=== PATIENT | female | born 1985 | race Caucasian/White ===

== ENCOUNTER 2016-12-09 19:35 | Inpatient (IN) | payer MEDICAID ==
[2016-12-09] VITALS (26 sets, daily range): BP systolic 123–166; BP diastolic 56–114; PULSE 62–125; RESP 18; TEMP 98; O2SAT 98–100
[~2016-12-09] VITALS: Ht 172.7 cm; Wt 86.2 kg
[~2016-12-09 19:35] MED LIST: AZOTAB2 PO; CLEO300C2 PO; DIPHTH/TETANUS/ACEL PERTUSSIS (BOOSTER) 0.5 ML VIAL/PFS IM ONE; HYDR-3580 PO; IBUP800T23 PO; MEASLES, MUMPS, RUBELLA VACCINE 0.5 ML VIAL SQ ONE; PENI500T PO; ZOFR4TAB3 SL
[2016-12-09] MEDS ORDERED: LACTATED RINGER'S 1000 ML INJ 1,000 ML IV PRN (20:12)
[2016-12-09] MEDS ORDERED: LACTATED RINGER'S 1000 ML INJ 1,000 ML IV SCH (20:12)
[2016-12-09] MEDS ORDERED: CITRIC ACID-SODIUM CITRATE LIQ 30 ML UDC PO SCH (20:15)
[2016-12-09] MEDS ORDERED: LIDOCAINE HCL 1% 50 ML VIAL I-DERMAL PRN (20:15)
[2016-12-09] MEDS ORDERED: OXYTOCIN 30 UNITS-500ML PREMIX 500 ML IV ONE (20:15)
[2016-12-09] MEDS ORDERED: SODIUM CHLORID 0.9% 500 ML INJ 500 ML IV PRN (20:15)
[2016-12-09] MEDS ORDERED: LIDOCAINE HCL 1% 50 ML VIAL INFIL PRN (20:15)
[2016-12-09] MEDS ORDERED: ONDANSETRON HCL 4 MG/2 ML VIAL IV PRN (20:15)
[2016-12-09] MEDS ORDERED: MINERAL OIL 10 ML VIAL TOPICAL PRN (20:15)
[2016-12-09] MEDS ORDERED: CALCIUM GLUCONATE 10% 1 GM/10 ML VIAL IV PUSH PRN (20:30)
[2016-12-09] MEDS ORDERED: MAGNESIUM SULFATE 4 GM PREMIX 100 ML IV ONE (20:30)
--- NOTE | 2016-12-09 20:30 | HHI.HP ---
History & Physical H&P HPI Chief Complaint Contractions Date Seen: Dec 09, 2016 Travel History International Travel<30 Days: No Contact w/Intl Traveler<30Days: No History of Present Illness HPI Patient is a 31 year old at 38-6/7 weeks gestation based on LMP who presents today for contractions. She started having cramping last night and noticed increasing frequency of contractions. Contractions are now occurring q4min and lasting 1 min. She states that she lost her mucous plug. She denies any vaginal bleeding or discharge other than her mucous plug. No gush or leaking of fluid. No care. History (Limited) History Past Medical History Medical History: Denies Significant Hx Obstetric History Obstetric History s/p at 32 weeks gestation, complicated by pre-eclampsia and Gestation DM No Care Past Surgical History Surgical History: No Previous Surgery Family History Family History: Negative Social History Alcohol Use: No Tobacco Use: Yes (1/4 ppd x 5 months, 1-2 ppd in first few months of ) Substance Abuse: No Allergies-Medications Allergies-Medications (Allergen,Severity, Reaction): Coded Allergies: No Known Allergies (Unverified , 02/23/15) Home Meds Active Scripts Clindamycin Hcl (Cleocin)300 Mg [id number] Mg PO Q6 #28 CAP Prov:Zurdo Luz MD 02/23/15 Ibuprofen 800 Mg [id number] Mg PO Q8 PRN (pain and inflammation) #15 TAB Prov:Zurdo Luz MD 02/23/15 Ondansetron (Zofran ODT)4 Mg Tab4 Mg SL Q6 #4 TAB FOR NAUSEA/VOMITING Prov:Tashi Fletcher MD 02/01/15 Reported Medications Penicillin V Potassium (Pen Vk)500 Mg Atx118 Mg PO QID #40 TAB 02/23/15 Hydrocodone/Acetaminophen 7.5 mg/325 mg 1 Tab1 Tab PO Q4H PRN (PAIN) 02/23/15 Azo Standard Maximum 1 Tab PO TID 02/23/15 ROS Review of Systems Except as stated in HPI: all other systems reviewed are Neg General / Constitutional: No: Fever, Chills Eyes: No: Blurred Vision, Visual changes HENT: No: Headaches Cardiovascular: No: Chest Pain or Discomfort, Palpitations Respiratory: No: Cough, Short of Breath Gastrointestinal: No: Nausea, Vomiting Genitourinary: Pelvic Pain, Discharge, No: Dysuria, Hematuria, Vaginal Bleeding Musculoskeletal: No: Edema Skin: No Rash Psychiatric: No: Substance Abuse Physical Exam Physical Exam Narrative GENERAL: Well-nourished, well-developed patient. SKIN: Warm and dry. HEAD: Normocephalic and atraumatic. EYES: No scleral icterus. No injection or drainage. ENT: No nasal drainage noted. Mucous membranes pink. Airway patent. NECK: Supple, trachea midline. No JVD. CARDIOVASCULAR: Regular rate and rhythm without murmurs, gallops, or rubs. RESPIRATORY: Breath sounds equal bilaterally. No accessory muscle use. ABDOMEN/GI: Abdomen soft, non-tender, bowel sounds present, no rebound, no guarding Gravid to 38 weeks size GENITOURINARY: External Genitalia: intact and normal in appearance BUS glands: wnl Cervix: midposition Dilatation: 4 Effacement: 70 Station: -1 Presentation: vertex Membranes: intact Uterine Contractions: q4min FHT's: Category: II Baseline: 160 Reactive: + Variability: moderate Decels: none EXTREMITIES: No cyanosis or edema. BACK: Nontender without obvious deformity. NEUROLOGICAL: Awake and alert. Motor and sensory grossly within normal limits. Normal speech. Data Data Data Vital Signs Reviewed: Yes Orders Vital Signs (Adult) .ON ADMISSION (12/09/16 20:12) ^ Labor Status (12/09/16 20:12) ^ Non Stress Test (12/09/16 20:12) ^ Hydration (12/09/16 20:12) Ob (2e) Additional Admit Info (12/09/16 20:14) Admit To Inpatient (12/09/16 ) Code Status (12/09/16 20:12) Vital Signs (Adult) .Per protocol (12/09/16 20:12) Activity Oob Ad Alannah (12/09/16 20:12) ^ Heart (12/09/16 20:12) ^ Amnioinfusion (12/09/16 20:12) Urinary Catheter Management .ONCE (12/09/16 20:12) Diet Liquid (12/10/16 Breakfast) Lactated Ringer's 1000 Ml Inj (Lr 1000 M (12/09/16 20:12) Lactated Ringer's 1000 Ml Inj (Lr 1000 M (12/09/16 20:12) Sodium Chlorid 0.9% 500 Ml Inj (Ns 500 M (12/09/16 20:15) Sodium Chlor 0.9% 1000 Ml Inj (Ns 1000 M (12/09/16 20:32) Lidocaine 1% Inj (50 Ml) (Xylocaine 1% I (12/09/16 20:15) Citric Acid-Sodium Citrate Liq (Bicitra (12/09/16 20:15) Ondansetron Inj (Zofran Inj) (12/09/16 20:15) Fentanyl Inj (Fentanyl Inj) (12/09/16 20:15) Fentanyl Inj (Fentanyl Inj) (12/09/16 20:15) Complete Blood Count With Diff (12/09/16 20:12) Hold Clot (12/09/16 20:12) Abo/Rh Blood Type (12/09/16 20:12) Urinalysis - C+S If Indicated (12/09/16 20:12) Resp Oxygen Non Rebreathe Mask (12/09/16 ) ^ Epidural / Intrathecal Infus (12/09/16 20:12) Oxytocin 30 Units-500ml Premix (Pitocin (12/09/16 20:15) Lidocaine 1% Inj (50 Ml) (Xylocaine 1% I (12/09/16 20:15) Light Mineral Oil (Muri-Lube Oil) (12/09/16 20:15) Inpatient Certification (12/09/16 ) Rubella Immune Status (12/09/16 20:12) Hepatitis Profile (12/09/16 20:12) Rapid Plasma Regin (Rpr) W Ttr (12/09/16 20:12) Type And Screen (12/09/16 20:12) No Care Spec Serology (12/09/16 20:12) ^ Notify Parameters (12/09/16 20:17) ^ Check Deep Tendon Reflexes Q1H (12/09/16 20:17) Magnesium Sulfate 40 Gm Premix (Magnesiu (12/09/16 21:00) Calcium Gluconate Inj (Calcium Gluconate (12/09/16 20:30) Comprehensive Metabolic Panel (12/09/16 20:17) Uric Acid (12/09/16 20:17) Magnesium Sulfate 4 Gm Premix (Magnesium (12/09/16 20:30) Dye Weigher / Telemetry VIDAL.Q8H (12/09/16 20:17) Micro Albumin Creat Random Ur (12/09/16 20:17) Group B Strep Pcr (12/09/16 20:21) [facility] Medical Record Reviewed: Yes Narrative Course / MDM 31 year old at 38-6/7 weeks gestation. 1. IUP- Category II tracing for tachycardia, continue to monitor toco/fht , IV fluid hydration. 2. Labor- Regular painful contractions, cervical change to 5cm after 30 minutes. Will admit for labor. AROM with no fluid return. 3. HTN- BP 150/100, 156/97, 152/96, 150/76. No history of HTN. Pre-eclampsia in previous . No care. Magnesium sulfate for seizure ppx. Continue to monitor BP's closely. Obtain CBC, CMP, uric acid, UA, urine microalbumin/creatinine ratio. 4. No care- Bedside US shows single gestation, vertex presentation. Obtain labs. 5. GBS unknown- rapid GBS pending 6. Anticipate sdw Dr. Grewal and Dr. Onofre R1 Emily Azevedo MD R2 Dec 09, 2016 20:30
[2016-12-09] MEDS ORDERED: SODIUM CHLOR 0.9% 1000 ML INJ 1,000 ML IV PRN (20:32)
--- NOTE | 2016-12-09 20:45 | PD ---
HPI Chief Complaint Labor pain Date Seen: Dec 09, 2016 Travel History International Travel<30 Days: No Contact w/Intl Traveler<30Days: No History of Present Illness HPI This patient is a 31-year-old white female at 38 weeks and 6 days by LMP with no care to date. She presents complaining of regular contraction pain. Denies bleeding or rupture the membranes baby's been active, and the heart rate tracing is showing a mild tachycardia with good variability and accelerations noted her blood pressures are elevated in the range of 150-160/90-100 and she had preeclampsia with her first baby says otherwise she has no high blood pressure issues and she is monitoring her blood pressure at home and it was normal Para: 1 : 2 History Obstetric History Obstetric History Preeclampsia with first baby vaginal Family History Family History: Negative Social History Alcohol Use: No Tobacco Use: No Substance Abuse: No Allergies-Medications (Allergen,Severity, Reaction): Coded Allergies: No Known Allergies (Unverified , 02/23/15) Home Meds Active Scripts Clindamycin Hcl (Cleocin)300 Mg [id number] Mg PO Q6 #28 CAP Prov:Zurdo Luz MD 02/23/15 Ibuprofen 800 Mg [id number] Mg PO Q8 PRN (pain and inflammation) #15 TAB Prov:Zurdo Luz MD 02/23/15 Ondansetron (Zofran ODT)4 Mg Tab4 Mg SL Q6 #4 TAB FOR NAUSEA/VOMITING Prov:Tashi Fletcher MD 02/01/15 Reported Medications Penicillin V Potassium (Pen Vk)500 Mg [id number] Mg PO QID #40 TAB 02/23/15 Hydrocodone/Acetaminophen 7.5 mg/325 mg 1 Tab1 Tab PO Q4H PRN (PAIN) 02/23/15 Azo Standard Maximum 1 Tab PO TID 02/23/15 Review of Systems General / Constitutional: No: Fever, Weight Gain, Chills, Other Eyes: No: Diploplia, Blurred Vision, Visual changes, Pain, Photophobia HENT: No: Headaches, Vertigo, Lightheadedness Cardiovascular: No: Irregular Rhythm, Chest Pain or Discomfort, Palpitations, Tachycardia, Syncope, Varicosities, Edema, Cyanosis Respiratory: No: Cough, Short of Breath, Other Gastrointestinal: Abdominal Pain, No: Nausea, Vomiting, Diarrhea Genitourinary: No: Decreased Urinary Output, Oliguria Musculoskeletal: No: Limited ROM, Weakness, Cramping, Edema, Pain Skin: No Rash, No Itching, No Dryness, No Lumps, No Change in Pigmentation, No Change in Nails, No Alopecia, No Lesions Neurologic: No: Weakness, Dizziness, Syncope, Focal Abnormalities, Coordination Problem, Headache, Slurred Speech, Seizures Psychiatric: No: Depression, Suicidal Ideations, Homicidal Ideation Endocrine: No: Heat Intolerance, Cold Intolerance, Polydipsia, Polyuria, Other Physical Exam Narrative GENERAL: Well-nourished, well-developed patient. SKIN: Warm and dry. HEAD: Normocephalic and atraumatic. EYES: No scleral icterus. No injection or drainage. ENT: No nasal drainage noted. Mucous membranes pink. Airway patent. NECK: Supple, trachea midline. No JVD. CARDIOVASCULAR: Regular rate and rhythm without murmurs, gallops, or rubs. RESPIRATORY: Breath sounds equal bilaterally. No accessory muscle use. BREASTS: Bilateral exam showed no masses , no retractions, no nipple discharge. ABDOMEN/GI: Abdomen soft, non-tender, bowel sounds present, no rebound, no guarding Gravid to [-38] weeks size Fundal Height: [-38 cm] GENITOURINARY: External Genitalia: intact and normal in appearance, GBS culture done BUS glands: [-] Dilatation: [-4] Effacement: [70-] Station: [-3] Presentation: [vtx-] Membranes: [intact ] Uterine Contractions: [-] FHT's: Category: [2-] Baseline: [144-] Reactive: [yes-] Variability: [-mod] Decels: [-none] EXTREMITIES: No cyanosis or edema. BACK: Nontender without obvious deformity. No CVA tenderness. NEUROLOGICAL: Awake and alert. Motor and sensory grossly within normal limits. Five out of 5 muscle strength in all muscle groups. Normal speech. Data Data Orders Vital Signs (Adult) .ON ADMISSION (12/09/16 20:12) ^ Labor Status (12/09/16 20:12) ^ Non Stress Test (12/09/16 20:12) ^ Hydration (12/09/16 20:12) Ob (2e) Additional Admit Info (12/09/16 20:14) Admit To Inpatient (12/09/16 ) Code Status (12/09/16 20:12) Vital Signs (Adult) .Per protocol (12/09/16 20:12) Activity Oob Ad Alannah (12/09/16 20:12) ^ Heart (12/09/16 20:12) ^ Amnioinfusion (12/09/16 20:12) Urinary Catheter Management .ONCE (12/09/16 20:12) Diet Liquid (12/10/16 Breakfast) Lactated Ringer's 1000 Ml Inj (Lr 1000 M (12/09/16 20:12) Lactated Ringer's 1000 Ml Inj (Lr 1000 M (12/09/16 20:12) Sodium Chlorid 0.9% 500 Ml Inj (Ns 500 M (12/09/16 20:15) Sodium Chlor 0.9% 1000 Ml Inj (Ns 1000 M (12/09/16 20:32) Lidocaine 1% Inj (50 Ml) (Xylocaine 1% I (12/09/16 20:15) Citric Acid-Sodium Citrate Liq (Bicitra (12/09/16 20:15) Ondansetron Inj (Zofran Inj) (12/09/16 20:15) Fentanyl Inj (Fentanyl Inj) (12/09/16 20:15) Fentanyl Inj (Fentanyl Inj) (12/09/16 20:15) Complete Blood Count With Diff (12/09/16 20:12) Hold Clot (12/09/16 20:12) Abo/Rh Blood Type (12/09/16 20:12) Urinalysis - C+S If Indicated (12/09/16 20:12) Resp Oxygen Non Rebreathe Mask (12/09/16 ) ^ Epidural / Intrathecal Infus (12/09/16 20:12) Oxytocin 30 Units-500ml Premix (Pitocin (12/09/16 20:15) Lidocaine 1% Inj (50 Ml) (Xylocaine 1% I (12/09/16 20:15) Light Mineral Oil (Muri-Lube Oil) (12/09/16 20:15) Inpatient Certification (12/09/16 ) Rubella Immune Status (12/09/16 20:12) Hepatitis Profile (12/09/16 20:12) Rapid Plasma Regin (Rpr) W Ttr (12/09/16 20:12) Type And Screen (12/09/16 20:12) No Care Spec Serology (12/09/16 20:12) ^ Notify Parameters (12/09/16:17) ^ Check Deep Tendon Reflexes Q1H (12/09/16 20:17) Magnesium Sulfate 40 Gm Premix (Magnesiu (12/09/16 21:00) Calcium Gluconate Inj (Calcium Gluconate (12/09/16 20:30) Comprehensive Metabolic Panel (12/09/16 20:) Uric Acid (12/09/16 20:17) Magnesium Sulfate 4 Gm Premix (Magnesium (12/09/16 20:30) Wholesale Agronomist / Telemetry VIDAL.Q8H (12/09/16 20:) Micro Albumin Creat Random Ur (12/09/16 20:17) Group B Strep Pcr (12/09/16 20:21) MDM Interpretation(s) This patient is a 31-year-old white female at 38-39 weeks with by her LMP with no care today. She presents clinically contractions. No bleeding or ruptured membranes noted the baby's active heart rate tracing shows mild tachycardia with good variability. Her blood pressures elevated 150-160/90-100, she had a history of preeclampsia with her first baby. Her cervix is 4 cm dilated she is helder actively with pain Plan Plan this patient is being admitted the hospital check her preeclamptic labs and urinalysis urine drug screen to diminish magnesium sulfate for seizure prophylaxis, and to augment her labor by rupture membranes and augmented when necessary. Anticipate vaginal delivery. Diagnosis Diagnosis: Primary Impression: Hypertension affecting in third trimester Ayaan Grewal II, MD Dec 09, 2016 20:45
[2016-12-09 20:53] LABS: BLOOD, URINE NEG (NEG); COMMENT (UR) CULT NOT INDICATED; CULTURE IF INDICATED CULT NOT INDICATED; GLUCOSE,URINE NEG (NEG); KETONE, URINE NEG (NEG); MUCUS URINE FEW /lpf (OCC); NITRITE,URINE NEG (NEG); PH, URINE 6.5 (5.0-8.5); SQUAMOUS EPITHELIAL CELL URINE 1 /hpf (0-5); URINE COLOR LIGHT-YELLOW (YELLW/STRAW)
[2016-12-09 21:00] LABS: AMPHETAMINE, URINE NEG (NEG); BARBITURATES, URINE NEG (NEG); COCAINE, URINE NEG (NEG)
[2016-12-09] MEDS ORDERED: MAGNESIUM SULFATE 40 GM PREMIX 1,000 ML IV SCH (21:00)
[2016-12-09 22:16] LABS: BASOPHIL # 0.2 TH/MM3 (0-0.2); BASOPHIL % 0.9 % (0.0-2.0); EOSINOPHIL # 0.4 TH/MM3 (0-0.4); EOSINOPHIL % 1.9 % (0.0-4.0); HEMATOCRIT 33.8 % (35.0-46.0); HEMO FLAGS DIFF FINAL; LYMPH % 11.2 % (9.0-44.0); LYMPHOCYTE # 2.3 TH/MM3 (1.0-4.8); MEAN CELL VOLUME 82.4 FL (80.0-100.0); MEAN CORPUSCULAR HEMOGLOBIN 27.6 PG (27.0-34.0); MEAN CORPUSCULAR HGB CONC 33.5 % (32.0-36.0); MONO % 9.1 % (0.0-8.0); NEUT % 76.9 % (16.0-70.0); PLATELET COUNT 380 TH/MM3 (150-450); RED BLOOD COUNT 4.09 MIL/MM3 (4.00-5.30); RED CELL DISTRIBUTION WIDTH 12.8 % (11.6-17.2); WHITE BLOOD COUNT 20.9 TH/MM3 (4.0-11.0)
[2016-12-09 22:26] LABS: MICRO ALBUMIN RANDOM URINE RAW 40.4 MG/L (0.0-30.0)
[2016-12-09 22:58] LABS: ALKALINE PHOSPHATASE 149 U/L (45-117); ALT (GPT) 13 U/L (10-53); ANION GAP 7 MEQ/L (5-15); AST (GOT) 18 U/L (15-37); BICARBONATE 26.4 MEQ/L (21.0-32.0); BLOOD UREA NITROGEN 10 MG/DL (7-18); CHLORIDE 106 MEQ/L (98-107); GLOMERULAR FILTRATION RATE 125 ML/MIN (>89); SODIUM (NA) 139 MEQ/L (136-145); TOTAL BILIRUBIN ADULT 0.2 MG/DL (0.2-1.0); URIC ACID 3.2 MG/DL (2.6-6.0)
[2016-12-09 22:59] LABS: RUBELLA IGG ANTIBODY 83.7 IU/mL (10.0-500.0); RUBELLA STATUS IMMUNE (IMMUNE)
[2016-12-09] MEDS ORDERED: fentaNYL 2MCG-BUPIV 0.125% INJ 100 ML ONE (22:59)
--- NOTE | 2016-12-09 23:18 | PD.LABORPN ---
Subjective Subjective Patient feeling painful contractions q2-4min. Objective Vital Signs Vital Signs Date Time Temp Pulse Resp B/P Pulse Ox O2 Delivery O2 Flow Rate FiO2 12/09/16 22:57 81 160/97 12/09/16 22:45 68 150/86 12/09/16 22:30 73 146/99 12/09/16 22:15 65 143/85 12/09/16 22:00 71 140/92 12/09/16 21:46 72 133/85 12/09/16 21:15 67 145/85 12/09/16 21:01 67 156/72 12/09/16 20:55 79 133/90 12/09/16 20:54 83 162/94 12/09/16 20:46 62 150/76 12/09/16 20:15 79 12/09/16 20:15 152/96 12/09/16 20:09 77 156/97 Objective Pelvic Exam: Cervix: midposition Dilatation: 7 Effacement: 100 Station: -1 Presentation: vertex Membranes: ruptured Uterine Contractions: q2-4min FHT's: Category: I Baseline: 140 Reactive: + Variability: moderate Decels: none Assessment/Plan Assessment and Plan 31 year old at 38-6/7 weeks gestation. 1. IUP- Category I tracing, reassuring. Continue routine obstetric care. 2. Labor- Regular painful contractions, cervical change noted. AROM with no fluid return. Epidural. 3. Hypertension in - Consistently elevated 140-160's/80-90's. No history of HTN. Pre-eclampsia in previous . No care. Magnesium sulfate for seizure ppx. Continue to monitor BP's closely. Platelets, liver enzymes, uric acid, UA wnl. Urine microalbumin/creatinine ratio elevated at 79. Patient remains asymptomatic. 4. No care- Bedside US shows single gestation, vertex presentation. labs, UDS pending. 5. GBS unknown- rapid GBS pending 6. Anticipate sdw Dr. Grewal and Dr. Onofre R1 Emily Azevedo MD R2 Dec 09, 2016 23:18
[2016-12-09] MEDS ORDERED: fentaNYL 2MCG-BUPIV 0.125% 100 ML EPIDURAL SCH (23:45)
[2016-12-09] MEDS ORDERED: DO NOT ADMINISTER ANTICOAGULANTS XX PRN (23:45)
[2016-12-09] MEDS ORDERED: ePHEDrine/NS 50 MG/5 ML SYR IV PRN (23:45)
[2016-12-09] MEDS ORDERED: NO SYSTEM NARCOTICS XX PRN (23:45)
[2016-12-10] VITALS (28 sets, daily range): BP systolic 125–160; BP diastolic 69–116; PULSE 64–93; RESP 18–24; TEMP 97.8–98.7
[2016-12-10] MEDS ORDERED: oxyCODONE/ACETAMINOPHEN 5 MG/325 MG TAB PO PRN
[2016-12-10] MEDS ORDERED: ALUMINUM/MAGNESIUM/SIMETH 30 ML CUP PO PRN
[2016-12-10] MEDS ORDERED: SODIUM CHLORIDE 0.9% FLUSH 5 ML FLUSH IV PRN
[2016-12-10] MEDS ORDERED: ONDANSETRON ODT 4 MG TAB PO PRN
[2016-12-10] MEDS ORDERED: WITCH HAZEL 50%/GLYCERIN 12.5% 40 PAD JAR TOPICAL PRN
[2016-12-10] MEDS ORDERED: BENZOCAINE 20% TOPICAL SPRAY 60 ML CAN TOPICAL PRN
[2016-12-10] MEDS ORDERED: ACETAMINOPHEN 325 MG TAB PO PRN
[2016-12-10] MEDS ORDERED: DOCUSATE SODIUM 50 MG/SENNA 8.6 MG TAB PO PRN
--- NOTE | 2016-12-10 00:01 | PD.OB.DELI ---
Delivery Date: Dec 09, 2016 Anesthesia: Epidural Episiotomy: None Vaginal Delivery: Normal Presentation: Occiput anterior Nuchal Cord: x1 Delayed cord clamping (45 sec): Yes : Female One Minute : 8 Five Minute : 9 Weight: 2880g Infant Care: Suctioned, Spontaneous crying, Responded to stimulation, Blow-by O2 delivered Placenta: Spontaneous delivery, Intact, 3 vessel cord Laceration: 1 deg Additional Information EBL 250cc Delivery performed by Dr. Azevedo and Dr. Onofre, supervised by Dr. Uri Azevedo,Emily Holbrook Dec 10, 2016 00:01
--- NOTE | 2016-12-10 00:10 | PD.LABORPN ---
Subjective Subjective OB attending note The patient delivered vaginally over an intact perineum without difficulty ., weight 2880 g 8/ 9 GBS was unknown. Her bilateral labial lacerations were repaired with a running chromic suture, delivery done by family medicine residents who did a good job sent out intact spontaneously. There were no complications to delivery. Delivery was supervised by myself Objective Vital Signs Vital Signs Date Time Temp Pulse Resp B/P Pulse Ox O2 Delivery O2 Flow Rate FiO2 12/09/16 23:30 69 123/86 12/09/16 23:25 70 127/58 12/09/16 23:25 73 12/09/16 23:23 66 130/56 12/09/16 23:21 88 140/114 12/09/16 23:20 79 12/09/16 23:15 152/89 12/09/16 23:15 71 12/09/16 23:10 74 12/09/16 23:10 153/89 12/09/16 23:05 79 12/09/16 23:05 166/94 12/09/16 23:02 74 138/92 12/09/16 22:57 81 160/97 12/09/16 22:45 68 150/86 12/09/16 22:30 73 146/99 12/09/16 22:15 65 143/85 12/09/16 22:00 71 140/92 12/09/16 21:46 72 133/85 12/09/16 21:15 67 145/85 12/09/16 21:01 67 156/72 12/09/16 20:55 79 133/90 12/09/16 20:54 83 162/94 12/09/16 20:46 62 150/76 12/09/16 20:15 79 12/09/16 20:15 152/96 12/09/16 20:09 77 156/97 Objective Ayaan Grewal II, MD Dec 10, 2016 00:10
[2016-12-10] MEDS: oxyCODONE/ACETAMINOPHEN 5 MG/325 MG TAB PO PRN ×6 (01:29→22:39)
[2016-12-10] MEDS: IBUPROFEN 600 MG TAB PO PRN ×3 (01:30→18:18)
[2016-12-10] MEDS ORDERED: NICOTINE 7 MG/24 HR PATCH TD SCH (09:00)
[2016-12-10] MEDS ORDERED: REMOVE OLD PATCH-NICOTINE TD SCH (09:00)
[2016-12-10] MEDS ORDERED: POLYETHYLENE GLYCOL 17 GM PKG PO SCH (09:45)
[2016-12-10] MEDS ORDERED: PETROLEUM/SHARK LIVER OIL 60 GM TUBE RECTAL PRN (09:45)
[2016-12-10] MEDS ORDERED: CALCIUM CARBONATE 500 MG CHEWABLE TAB CHEW PRN (09:45)
[2016-12-10] MEDS: NICOTINE 14 MG/24 HR PATCH TD SCH (09:53)
[2016-12-10] MEDS ORDERED: LORazepam 2 MG/ML VIAL IV PUSH PRN (10:00)
[2016-12-10] MEDS ORDERED: ZOLPIDEM TARTRATE 5 MG TAB PO PRN ×2 (10:00)
[2016-12-10 10:37] LABS: RAPID PLASMA REAGIN SCREEN NON-REACTIVE (NON-REACTVE)
--- NOTE | 2016-12-10 17:22 | HHI.OB ---
Subjective Post Day: 1 Remarks PPD1. Pain poorly controlled. Pt appears agitated, anxious. Hypertensive with SBP to 150. Mg still running- has tolerated clear fluids, but no solids yet. Voiding via rojas without difficulty. Denies flatus. Denies BM. Not yet OOB secondary to Rojas and IV medications. Denies fevers/chills, SOB/chest pain, calf pain Objective Vitals/I&O Vital Signs Date Time Temp Pulse Resp B/P Pulse Ox O2 Delivery O2 Flow Rate FiO2 12/10/16 14:45 98.3 83 18 156/91 12/10/16 14:00 20 12/10/16 13:00 87 140/98 12/10/16 12:30 97.8 20 12/10/16 12:00 69 125/73 12/10/16 12:00 24 12/10/16 11:00 80 143/82 12/10/16 11:00 18 12/10/16 10:00 66 139/89 12/10/16 10:00 20 12/10/16 09:00 67 160/89 12/10/16 08:34 98.7 20 12/10/16 07:00 64 151/86 12/10/16 06:00 80 151/85 12/10/16 05:45 18 12/10/16 05:00 71 130/75 12/10/16 04:00 70 136/78 12/10/16 03:40 97.8 18 12/10/16 03:36 67 142/87 12/10/16 02:56 67 12/10/16 02:56 142/69 12/10/16 02:25 18 12/10/16 02:00 93 157/93 12/10/16 01:45 90 150/88 12/10/16 01:30 87 149/94 12/10/16 01:15 83 134/86 12/10/16 01:00 69 141/74 12/10/16 00:55 18 12/10/16 00:45 71 144/83 12/10/16 00:41 76 131/89 12/10/16 00:25 18 12/10/16 00:00 88 136/116 12/09/16 23:55 98.0 18 12/09/16 23:51 72 131/72 12/09/16 23:46 125 133/74 2/14/17 23:36 70 151/64 12/09/16 23:30 69 123/86 12/09/16 23:25 98 12/09/16 23:25 70 127/58 12/09/16 23:25 73 12/09/16 23:23 66 130/56 12/09/16 23:21 88 140/114 12/09/16 23:20 79 12/09/16 23:20 100 12/09/16 23:15 152/89 12/09/16 23:15 18 100 12/09/16 23:15 98.0 12/09/16 23:15 71 12/09/16 23:10 100 12/09/16 23:10 74 12/09/16 23:10 153/89 12/09/16 23:05 100 12/09/16 23:05 79 12/09/16 23:05 166/94 12/09/16 23:02 74 138/92 12/09/16 22:57 81 160/97 12/09/16 22:45 68 150/86 12/09/16 22:30 73 146/99 12/09/16 22:15 65 143/85 12/09/16 22:00 71 140/92 12/09/16 21:46 72 133/85 12/09/16 21:15 67 145/85 12/09/16 21:01 67 156/72 12/09/16 20:55 79 133/90 12/09/16 20:54 83 162/94 12/09/16 20:46 62 150/76 12/09/16 20:15 79 12/09/16 20:15 152/96 12/09/16 20:09 77 156/97 Objective Remarks GENERAL: Well-nourished, well-developed patient in moderate distress secondary to anxiety and abdominal pain HEENT: PERRL. MMM. CV: RRR. No murmurs. RESP: Breathing well on room air. GI: Abd mildly diffusely tender. Fundus firm just inferior to umbilicus. When distracted, pain is greatly reduced to palpation : Light to moderate bleeding. MSK: No cyanosis or edema, non-tender, without signs of DVT. NEURO: Patellar reflex equally hyperreflexive 2+ bilaterally. PSYCH: Appears in emotional distress. Poor eye contact. Poor insight. Medications and IVs Current Medications Medications (Trade) Dose Ordered Sig/Morris Route Start Time Stop Time Status Last Admin Miscellaneous Information No systemic narcotics to be given except... UNSCH PRN XX 12/09/16 23:45 12/10/16 23:44 Miscellaneous Information DO NOT ADMINISTER ANY ANTICOAGUL... UNSCH PRN XX 12/09/16 23:45 12/10/16 23:44 (fentaNYL 2MCG-BUPIV 0.125% INJ) 100 ml @ 0 mls/hr TITRATE EPIDURAL 12/09/16 23:45 (ePHEDrine/NS 50 MG/5 ML SYR) 10 mg UNSCH PRN IV 12/09/16 23:45 12/10/16 23:44 (NS Flush) 2 ml BID IV 12/10/16 09:00 (NS Flush) 2 ml UNSCH PRN IV 12/10/16 00:00 (Tylenol) 650 mg Q4H PRN PO 12/10/16 00:00 (Motrin) 600 mg Q6H PRN PO 12/10/16 00:00 12/10/16 09:52 (Percocet 5-325 Mg) 1 tab Q4H PRN PO 12/10/16 00:00 (Percocet 5-325 Mg) 2 tab Q4H PRN PO 12/10/16 00:00 12/10/16 14:34 (Americaine 20% Top Spr) 1 spray Q4H PRN TOPICAL 12/10/16 00:00 (Tucks Pads) 1 applic QID PRN TOPICAL 12/10/16 00:00 (Joy-Colace) 2 tab Q12H PRN PO 12/10/16 00:00 (Mag-Al Plus Susp Liq) 15 ml Q8H PRN PO 12/10/16 00:00 (Zofran Odt) 4 mg Q6H PRN PO 12/10/16 00:00 (Habitrol 14 Mg Patch.24 Hr) 1 patch DAILY TD 12/10/16 09:15 12/10/16 09:53 Miscellaneous Information 1 HS TD 12/10/16 21:00 (Ativan Inj) 1 mg Q4H PRN IV PUSH 12/10/16 10:00 12/10/16 09:51 (Ambien) 10 mg HS PRN PO 12/10/16 10:00 (Tums Chew) 500 mg Q6HR PRN CHEW 12/10/16 09:45 (Miralax) 17 gm DAILY PO 12/10/16 09:45 (Preparation H Oint) 1 applic Q4HR PRN RECTAL 12/10/16 09:45 Assessment/Plan Problem List: (1) Normal vaginal delivery (2) Hypertension affecting in third trimester (3) Anxiety Assessment and Plan 31y PPD1 at 38/6 who presented with high blood pressure. 1. Normal vaginal delivery -Continue routine care -Motrin and Percocet PRN pain. Miralax for Bowel Reg. PRN Benadryl and PRN Zofran on board. -Encouraged OOB. Advised pelvic rest for 6 wks -Follow up OB appointment in 6 weeks with [facility] -Mom blood type O+, Rhogam not indicated -RPR non-reactive 2. HTN in -Mg started at 7pm yesterday, delivery at midnight. Discontinue Mg today at noon (12 hours s/p delivery) -Check reflexes with vitals and alert physician if concern for oversedation, respiratory difficulty, or hyporeflexia 3. Anxiety -Spot check UDS negative. Send out UDS pending -Pt acting increasingly anxious. Hypertensive to 150 -Continue pain control with ibuprofen q6h PRN and percocet 5-10mg q4h PRN -Add 1mg Ativan q4h PRN moderate to severe anxiety 4. Insomnia -Increase Zolpidem 5mg to 10mg HS PRN 5. Social Assistance Required -Mother contemplating adoption -No PCP -Limited care -Consulted Case Management to assist with adoption plans and obtain PCP and OBGYN follow up DW: Dr. Grewal Discharge Planning PPD1 today. Discharge tomorrow pending VSS and pain control. Leta Kirk MD R1 Dec 10, 2016 17:22
[2016-12-10] MEDS ORDERED: REMOVE OLD NICODERM (NICOTINE) PATCH TD SCH (21:00)
[2016-12-10] MEDS: SODIUM CHLORIDE 0.9% FLUSH 5 ML FLUSH IV SCH (22:39)
[2016-12-11] MEDS: IBUPROFEN 600 MG TAB PO PRN ×3 (00:44→14:20)
[2016-12-11] MEDS: oxyCODONE/ACETAMINOPHEN 5 MG/325 MG TAB PO PRN ×3 (04:38→12:32)
[2016-12-11 06:50] LABS: HEMATOCRIT 25.7 % (35.0-46.0); MEAN CELL VOLUME 81.4 FL (80.0-100.0); MEAN CORPUSCULAR HEMOGLOBIN 27.7 PG (27.0-34.0); PLATELET COUNT 293 TH/MM3 (150-450); RED BLOOD COUNT 3.15 MIL/MM3 (4.00-5.30); RED CELL DISTRIBUTION WIDTH 12.8 % (11.6-17.2); REVIEW FLAG FINAL; WHITE BLOOD COUNT 12.1 TH/MM3 (4.0-11.0)
[2016-12-11] MEDS ORDERED: SENN1TAB PO (07:22)
[2016-12-11] MEDS ORDERED: OXYC1TAB63 PO (07:22)
[2016-12-11] MEDS ORDERED: IBUP-232 PO (07:22)
--- NOTE | 2016-12-11 07:22 | HHI.DCPOC ---
Discharge Care Plan Diagnosis: (1) Normal vaginal delivery Report Symptoms to Your Doctor -Temperate above 100.5 degrees -Redness, of incision or excessive or foul smelling drainage -Unusual pain or calf pain -Increased vaginal bleeding -Painful or difficulty urinating -Feelings of extreme sadness or anxiety after 2 weeks Goals to Promote Your Health * To prevent worsening of your condition and complications * To maintain your health at the optimal level Directions to Meet Your Goals Take your medications as prescribed Follow your dietary instruction Follow activity as directed Ensure plenty of rest for recovery Drink fluids for hydration Keep your appointments as scheduled Take your immunizations and boosters as scheduled If your symptoms worsen call your PCP, if no PCP go to Urgent Care Center or Emergency Room Smoking is Dangerous to Your Health. Avoid second hand smoke Call the 24-hour crisis hotline for domestic abuse at Scott Bravo MD R2 Dec 11, 2016 07:22 Denita Proctor MD Dec 11, 2016 08:32
--- NOTE | 2016-12-11 08:09 | HHI.OB ---
Subjective Post Day: 2 Remarks Patient is doing well this morning. Having some abdominal pain, but medications are helping. She is ambulating and voiding without difficulty. Vaginal bleeding has improved. No fever, chills. The case maker have given the patient a list of OB providers in the area and she plans on making an appointment sometime today with them for next week. (Scott Bravo MD R2) Remarks Patient at this time desires to keep baby with assistance from family members. Bottle feeding, decline or pumping. (Denita Proctor MD) Objective Vitals/I&O Vital Signs Date Time Temp Pulse Resp B/P Pulse Ox O2 Delivery O2 Flow Rate FiO2 12/10/16 14:45 98.3 83 18 156/91 12/10/16 14:00 20 12/10/16 13:00 87 140/98 12/10/16 12:30 97.8 20 12/10/16 12:00 69 125/73 12/10/16 12:00 24 12/10/16 11:00 80 143/82 12/10/16 11:00 18 12/10/16 10:00 66 139/89 12/10/16 10:00 20 12/10/16 09:00 67 160/89 12/10/16 08:34 98.7 20 Objective Remarks GENERAL: Well-nourished, well-developed patient in moderate distress secondary to anxiety and abdominal pain HEENT: PERRL. MMM. CV: RRR. No murmurs. RESP: Breathing well on room air. GI: Abd mildly diffusely tender. Fundus firm just inferior to umbilicus. When distracted, pain is greatly reduced to palpation : Light to moderate bleeding. MSK: No cyanosis or edema, non-tender, without signs of DVT. NEURO: Patellar reflex equally hyperreflexive 2+ bilaterally. PSYCH: Appears in emotional distress. Poor eye contact. Poor insight. Medications and IVs Current Medications Medications (Trade) Dose Ordered Sig/Morris Route Start Time Stop Time Status Last Admin (fentaNYL 2MCG-BUPIV 0.125% INJ) 100 ml @ 0 mls/hr TITRATE EPIDURAL 12/09/16 23:45 (NS Flush) 2 ml BID IV 12/10/16 09:00 12/10/16 22:39 (NS Flush) 2 ml UNSCH PRN IV 2/15/17 00:00 (Tylenol) 650 mg Q4H PRN PO 12/10/16 00:00 (Motrin) 600 mg Q6H PRN PO 12/10/16 00:00 12/11/16 00:44 (Percocet 5-325 Mg) 1 tab Q4H PRN PO 12/10/16 00:00 (Percocet 5-325 Mg) 2 tab Q4H PRN PO 12/10/16 00:00 12/11/16 04:38 (Americaine 20% Top Spr) 1 spray Q4H PRN TOPICAL 12/10/16 00:00 (Tucks Pads) 1 applic QID PRN TOPICAL 12/10/16 00:00 (Joy-Colace) 2 tab Q12H PRN PO 12/10/16 00:00 (Mag-Al Plus Susp Liq) 15 ml Q8H PRN PO 12/10/16 00:00 (Zofran Odt) 4 mg Q6H PRN PO 12/10/16 00:00 (Habitrol 14 Mg Patch.24 Hr) 1 patch DAILY TD 12/10/16 09:15 12/10/16 09:53 Miscellaneous Information 1 HS TD 12/10/16 21:00 (Ativan Inj) 1 mg Q4H PRN IV PUSH 12/10/16 10:00 12/10/16 09:51 (Ambien) 10 mg HS PRN PO 12/10/16 10:00 (Tums Chew) 500 mg Q6HR PRN CHEW 12/10/16 09:45 (Miralax) 17 gm DAILY PO 12/10/16 09:45 (Preparation H Oint) 1 applic Q4HR PRN RECTAL 12/10/16 09:45 (Scott Bravo MD R2) Objective Remarks Uterus firm, NT Ext NT (Denita Proctor MD) Assessment/Plan Problem List: (1) Normal vaginal delivery (2) Hypertension affecting in third trimester (3) Anxiety Assessment and Plan 31y PPD2 at 38/6 1. Normal vaginal delivery -Continue routine care -Motrin and Percocet PRN pain. -Encouraged OOB. Advised pelvic rest for 6 wks -Follow up OB appointment in 1 weeks with OB provider. Case management has provided a list of OB providers in the area. -Mom blood type O+, Rhogam not indicated -RPR non-reactive 2. HTN in -Mg administered and discontinued 12/10 at noon. -Mandatory follow-up in one week with OB provider 3. Anxiety -UDS pending -Ativan when necessary while in hospital. 4. Insomnia -Zolpidem 5mg to 10mg HS PRN while in hospital 5. Social Assistance Required -Mother contemplating adoption -No PCP -Limited care -Consulted Case Management to assist with adoption plans and obtain PCP and OBGYN follow up We'll discuss with OB hospitalist. Discharge Planning Likely today. (Scott Bravo MD R2) Attending Attestation PPD #2 s/p No care. Patient agrees to f/u at [facility] in 2 weeks PIH s/p Magnesium sulfate. Remains asymptomatic. BP stable. D/c home on Motrin and Tylenol, Pericare Reviewed PP precautions Case Management following Patient seen and examined. D/w Dr. Bravo and Dr. Kirk (Denita Proctor MD) Scott Bravo MD R2 Dec 11, 2016 08:09 Denita Proctor MD Dec 11, 2016 08:30
[2016-12-11] MEDS: NICOTINE 14 MG/24 HR PATCH TD SCH (08:12)
[2016-12-11] MEDS: SODIUM CHLORIDE 0.9% FLUSH 5 ML FLUSH IV SCH (09:00)
[2016-12-16 07:30] LABS: BATH SALTS (MDPV) UR NEG (NEG); ECSTASY (MDMA) UR NEG (NEG); HEROIN (6-ACETYLMORPHINE) UR NEG (NEG); K2 SPICE UR NEG (NEG); OBMETHADONE UR NEG (NEG); OXYCODONE (PERCODAN) NEG (NEG); PHENCYCLIDINE URINE NEG (NEG)
[2017-01-21] MEDS ORDERED: LABE200T2 PO (13:47)
[2017-01-21] MEDS ORDERED: CITA10TA4 PO (13:47)
[2017-01-21] MEDS ORDERED: CITA20TA4 PO (13:47)
== END 2016-12-11 15:41 | disposition home or self-care (01) | DRG 775 ==
LOC: HOBED 19:35 → H2EB 20:17 → H1EA 12-10 02:16 → H2EA 12-10 02:17 → H1EA 12-10 14:56
PROVIDERS: ADMIT Obstetrics & Gynecology Maternal & Fetal Medicine; ATTEND Obstetrics & Gynecology Maternal & Fetal Medicine
PROC: 0HQ9XZZ Repair Perineum Skin, External Approach (ICD-10-PCS; principal; 2016-12-09)
PROC: 10E0XZZ Delivery of Products of Conception, External Approach (ICD-10-PCS; 2016-12-09)
PROC: 3E0R3CZ (ICD-10-PCS; 2016-12-09)
PROC: 00HU33Z Insertion of Infusion Device into Spinal Canal, Percutaneous Approach (ICD-10-PCS; 2016-12-09)
DX: O70.0 First degree perineal laceration during delivery (principal); O99.344 Other mental disorders complicating childbirth; F41.9 Anxiety disorder, unspecified; F17.200 Nicotine dependence, unspecified, uncomplicated; O69.81X0 Labor and delivery complicated by cord around neck, without compression, not applicable or unspecified; O99.334 Smoking (tobacco) complicating childbirth; Z3A.38 38 weeks gestation of pregnancy; Z37.0 Single live birth; O09.30 Supervision of pregnancy with insufficient antenatal care, unspecified trimester; G47.00 Insomnia, unspecified; Z86.32 Personal history of gestational diabetes
CPT/HCPCS: 80053; 80074; 80307; 81001; 82043; 84550; 85025; 85027; 86592; 86703; 86762; 86850; 86900; 86901; 88307; 99285; G0481; J2060; J3010; J3475; J7120

== ENCOUNTER 2017-01-29 16:16 | Emergency (ER) | payer MEDICAID ==
[~2017-01-29] VITALS: Ht 172.7 cm; Wt 77.0 kg
[~2017-01-29 16:16] MED LIST changes: -AZOTAB2 PO; +CITA10TA4 PO; +CITA20TA4 PO; -CLEO300C2 PO; -DIPHTH/TETANUS/ACEL PERTUSSIS (BOOSTER) 0.5 ML VIAL/PFS IM ONE; -HYDR-3580 PO; -IBUP800T23 PO; +LABE200T2 PO; -MEASLES, MUMPS, RUBELLA VACCINE 0.5 ML VIAL SQ ONE; -PENI500T PO; -ZOFR4TAB3 SL
[2017-01-29 16:17] VITALS: BP 195/108; PULSE 74; RESP 16; TEMP 98.2; O2SAT 99
[2017-01-29 16:54] VITALS: BP 179/92; PULSE 68; RESP 18; O2SAT 98
[2017-01-29] MEDS ORDERED: hydrALAZINE HCL 20 MG/ML VIAL IV PUSH ONE (17:15)
[2017-01-29] MEDS ORDERED: SODIUM CHLORIDE 0.9% FLUSH 10 ML FLUSH IVF PRN (17:15)
--- NOTE | 2017-01-29 17:16 | PD ---
HPI Chief Complaint: Chest Pain Time Seen by Provider: 17:01 Travel History International Travel<30 days: No Contact w/Intl Traveler<30days: No Traveled to known affect area: No History of Present Illness HPI 31-year-old female who is about 8 weeks status post full-term, here for evaluation of elevated blood pressure. Patient was seen by her FAMILY PRACTICE NURSE PRACTITIONER doctor about a week ago and was started on an antihypertensive, however she does not recall the name of this medication. She was seen at [facility] last week where this medication was switched to hydralazine. She is here today because her FAMILY PRACTICE NURSE PRACTITIONER doctor sent her here for evaluation of elevated blood pressure. The patient is also complaining of intermittent sharp left-sided chest pain, sharp left neck pain, sharp left shoulder pain, headache, and blurry vision. She denies fevers or chills. No abdominal pain. No urinary symptoms. She is currently on her menstrual period. PFSH Past Medical History Cardiovascular Problems: Yes (HYPERTENSION) Diminished Hearing: No Gastrointestinal Disorders: Yes (chrones) Genitourinary: Yes (kidney stones) Kidney Stones: Yes ?: Not LMP: 01/29/2017 Social History Alcohol Use: No Tobacco Use: Yes Substance Use: No Allergies-Medications (Allergen,Severity, Reaction): Coded Allergies: No Known Allergies (Unverified , 01/29/17) Reported Meds & Prescriptions Reported Meds & Active Scripts Active Hydralazine (Hydralazine HCl) 25 Mg Tab 25 Mg PO TID 30 Days Take with a meal Citalopram (Citalopram Hydrobromide) 20 Mg Tab 20 Mg PO DAILY Citalopram (Citalopram Hydrobromide) 10 Mg Tab 10 Mg PO DAILY Labetalol (Labetalol HCl) 200 Mg Tab 200 Mg PO BID Review of Systems Except as stated in HPI: all other systems reviewed are Neg Physical Exam Narrative GENERAL: Well-developed, well-nourished, comfortable, no acute distress. SKIN: Focused skin assessment warm/dry. HEAD: Atraumatic. Normocephalic. EYES: Pupils equal and round. No scleral icterus. No injection or drainage. ENT: Mucous membranes pink and moist. NECK: Trachea midline. No JVD. CARDIOVASCULAR: Regular rate and rhythm. Distal pulses brisk and equal bilaterally. RESPIRATORY: No accessory muscle use. Clear to auscultation. Breath sounds equal bilaterally. GASTROINTESTINAL: Abdomen soft, non-tender, nondistended. MUSCULOSKELETAL: No obvious deformities. No clubbing. No cyanosis. No edema. NEUROLOGICAL: Awake and alert. No obvious cranial nerve deficits. Motor grossly within normal limits. Normal speech. PSYCHIATRIC: Appropriate mood and affect; insight and judgment normal. Data Data Last Documented VS Vital Signs Date Time Temp Pulse Resp B/P Pulse Ox O2 Delivery O2 Flow Rate FiO2 01/29/17 17:57 75 16 157/84 99 Room Air 01/29/17 16:17 98.2 Orders Electrocardiogram (01/29/17 ) Ckmb (Isoenzyme) Profile (01/29/17 17:06) Complete Blood Count With Diff (01/29/17 17:06) Comprehensive Metabolic Panel (01/29/17 17:06) D-Dimer (01/29/17 17:06) Magnesium (Mg) (01/29/17 17:06) Prothrombin Time / Inr (Pt) (01/29/17 17:06) Act Partial Throm Time (Ptt) (01/29/17 17:06) Troponin I (01/29/17 17:06) Chest, Single Ap (01/29/17 17:06) Ecg Monitoring (01/29/17 17:06) Bilateral Bp Monitoring (01/29/17 17:06) Iv Access Insert/Monitor (01/29/17 17:06) Oximetry (01/29/17 17:06) Sodium Chloride 0.9% Flush (Ns Flush) (01/29/17 17:15) Urinalysis - C+S If Indicated (01/29/17 17:06) Hydralazine Inj (Apresoline Inj) (01/29/17 17:15) Metoclopramide Inj (Reglan Inj) (01/29/17 18:15) Ketorolac Inj (Toradol Inj) (01/29/17 18:15) Labs Laboratory Tests Test 01/29/17 01/29/17 17:21 17:22 Urine Color LIGHT-YELLOW Urine Turbidity CLEAR Urine pH 6.0 Urine Specific Mackay 1.007 Urine Protein NEG mg/dL Urine Glucose (UA) NEG mg/dL Urine Ketones NEG mg/dL Urine Occult Blood MOD Urine Nitrite NEG Urine Bilirubin NEG Urine Urobilinogen LESS THAN 2.0 MG/DL Urine Leukocyte Esterase NEG Urine RBC 104 /hpf Urine WBC 1 /hpf Urine Squamous Epithelial <1 /hpf Cells Microscopic Urinalysis Comment CULT NOT INDICATED White Blood Count 7.8 TH/MM3 Red Blood Count 4.84 MIL/MM3 Hemoglobin 12.7 GM/DL Hematocrit 38.7 % Mean Corpuscular Volume 80.0 FL Mean Corpuscular Hemoglobin 26.2 PG Mean Corpuscular Hemoglobin 32.7 % Concent Red Cell Distribution Width 14.2 % Platelet Count 370 TH/MM3 Mean Platelet Volume 7.9 FL Neutrophils (%) (Auto) 50.8 % Lymphocytes (%) (Auto) 31.1 % Monocytes (%) (Auto) 9.5 % Eosinophils (%) (Auto) 7.1 % Basophils (%) (Auto) 1.5 % Neutrophils # (Auto) 4.0 TH/MM3 Lymphocytes # (Auto) 2.4 TH/MM3 Monocytes # (Auto) 0.7 TH/MM3 Eosinophils # (Auto) 0.6 TH/MM3 Basophils # (Auto) 0.1 TH/MM3 CBC Comment DIFF FINAL Differential Comment Prothrombin Time 10.3 SEC Prothromb Time International 0.9 RATIO Ratio Activated Partial 26.8 SEC Thromboplast Time D-Dimer Quantitative (PE/DVT) 0.40 MG/L FEU Sodium Level 143 MEQ/L Potassium Level 3.8 MEQ/L Chloride Level 109 MEQ/L Carbon Dioxide Level 26.5 MEQ/L Anion Gap 8 MEQ/L Blood Urea Nitrogen 8 MG/DL Creatinine 0.60 MG/DL Estimat Glomerular Filtration 117 ML/MIN Rate Random Glucose 79 MG/DL Calcium Level 8.9 MG/DL Magnesium Level 2.2 MG/DL Total Bilirubin 0.3 MG/DL Aspartate Amino Transf 12 U/L (AST/SGOT) Alanine Aminotransferase 22 U/L (ALT/SGPT) Alkaline Phosphatase 59 U/L Total Creatine Kinase 84 U/L Troponin I LESS THAN 0.02 NG/ML Total Protein 7.2 GM/DL Albumin 3.9 GM/DL [facility] Medical Decision Making Medical Screen Exam Complete: Yes Emergency Medical Condition: Yes Interpretation(s) EKG: Sinus, rate 64, normal axis, RSR prime, normal intervals, no acute ischemic abnormality. Differential Diagnosis Preeclampsia, hypertension, ACS, PE, pleurisy, pneumonia, pneumothorax Narrative Course Initial vital signs show heart rate 74, blood pressure 195/108, pulse ox 99% on room air, oral temp of 98.2F. Repeat blood pressure after 20 mg of IV hydralazine is 157/84. CBC shows WBC 7.8, hemoglobin 12.7, hematocrit 38.7, platelets 370. CMP is unremarkable. Specifically LFTs are normal. D-dimer 0.40. UA shows moderate occult blood, 104 RBCs, negative protein. Chest x-ray: The lungs are clear. Patient was made aware of all findings. She is resting comfortably. I do not believe her symptoms are consistent with preeclampsia. The patient was given a dose of IV Reglan and IV Toradol with complete resolution in all of her symptoms. She states she is feeling a lot better and would like to be discharged home. I told her that she can increase her hydralazine to 25 mg 3 times a day from 25 mg twice a day. I will give her prescription for this. PMD /SQL ETL DEVELOPER follow-up this week. She was informed on when to return to the emergency department. She verbalizes understanding and agreement with plan. Diagnosis Primary Impression: hypertension Referrals: Keying Machine Operator 3 days Primary Care Physician 3 days Additional Instructions: Follow-up with your FAMILY PRACTICE NURSE PRACTITIONER doctor this week. Follow-up with your primary care physician this week. Return to the emergency department for worsening symptoms or any other concerns. Scripts Hydralazine 25 Mg Tab25 Mg PO TID 30 Days Ref 0 Take with a meal Prov:Chepe Stout MD 01/29/17 Disposition: 01 DISCHARGE HOME Condition: Stable Chepe Stout MD Jan 29, 2017 17:16
[2017-01-29 17:21] VITALS: BP 179/92; PULSE 57; RESP 18; O2SAT 98
[2017-01-29 17:39] LABS: BLOOD, URINE MOD (NEG); COMMENT (UR) CULT NOT INDICATED; CULTURE IF INDICATED CULT NOT INDICATED; GLUCOSE,URINE NEG (NEG); KETONE, URINE NEG (NEG); NITRITE,URINE NEG (NEG); SQUAMOUS EPITHELIAL CELL URINE <1 /hpf (0-5); URINE COLOR LIGHT-YELLOW (YELLW/STRAW)
[2017-01-29 17:40] LABS: BASOPHIL # 0.1 TH/MM3 (0-0.2); BASOPHIL % 1.5 % (0.0-2.0); EOSINOPHIL # 0.6 TH/MM3 (0-0.4); EOSINOPHIL % 7.1 % (0.0-4.0); HEMATOCRIT 38.7 % (35.0-46.0); HEMO FLAGS DIFF FINAL; LYMPH % 31.1 % (9.0-44.0); LYMPHOCYTE # 2.4 TH/MM3 (1.0-4.8); MEAN CORPUSCULAR HEMOGLOBIN 26.2 PG (27.0-34.0); MEAN CORPUSCULAR HGB CONC 32.7 % (32.0-36.0); MONO % 9.5 % (0.0-8.0); NEUT % 50.8 % (16.0-70.0); PLATELET COUNT 370 TH/MM3 (150-450); RED BLOOD COUNT 4.84 MIL/MM3 (4.00-5.30); RED CELL DISTRIBUTION WIDTH 14.2 % (11.6-17.2); WHITE BLOOD COUNT 7.8 TH/MM3 (4.0-11.0)
--- NOTE | 2017-01-29 17:42 | RADRPT ---
EXAM DATE/TIME: 01/29/2017 17:30 [facility] COMPARISON: No previous studies available for comparison. INDICATIONS : Patient has had chest pain for three days. MEDICAL HISTORY : None. SURGICAL HISTORY : None. ENCOUNTER: Initial ACUITY: 1 day PAIN SCORE: 5/10 LOCATION: Bilateral chest FINDINGS: A single view of the chest demonstrates the lungs to be symmetrically aerated without evidence of mas s, infiltrate or effusion. The cardiomediastinal contours are unremarkable. Osseous structures are intact. CONCLUSION: The lungs are clear. Abrahan Kaye MD on January 29, 2017 at 17:41 Board Certified Radiologist. This report was verified electronically.
[2017-01-29 17:46] LABS: APTT (PATIENT) 26.8 SEC (24.3-30.1); INTERNATIONAL NORMALIZED RATIO 0.9 RATIO; PROTHROMBIN TIME - PATIENT 10.3 SEC (9.8-11.6)
[2017-01-29 17:53] LABS: ALT (GPT) 22 U/L (10-53); ANION GAP 8 MEQ/L (5-15); AST (GOT) 12 U/L (15-37); BICARBONATE 26.5 MEQ/L (21.0-32.0); BLOOD UREA NITROGEN 8 MG/DL (7-18); CHLORIDE 109 MEQ/L (98-107); GLOMERULAR FILTRATION RATE 117 ML/MIN (>89); MAGNESIUM 2.2 MG/DL (1.5-2.5); POTASSIUM 3.8 MEQ/L (3.5-5.1); SODIUM (NA) 143 MEQ/L (136-145)
[2017-01-29 17:57] VITALS: BP 157/84; PULSE 75; RESP 16; O2SAT 99
[2017-01-29 17:57] LABS: ALKALINE PHOSPHATASE 59 U/L (45-117); TOTAL BILIRUBIN ADULT 0.3 MG/DL (0.2-1.0)
[2017-01-29 18:02] LABS: CREATINE KINASE 84 U/L (26-192)
[2017-01-29] MEDS ORDERED: KETOROLAC TROMETHAMINE 30 MG/ML (IVP) VIAL IV PUSH ONE (18:15)
[2017-01-29] MEDS ORDERED: METOCLOPRAMIDE HCL 10 MG/2 ML VIAL IV PUSH ONE (18:15)
[2017-01-29] MEDS ORDERED: HYDR25TA35 PO (18:50)
--- NOTE | 2017-01-30 13:39 | EKG ---
Date Performed: 01/29/2017 Time Performed: 16:38:10 PTAGE: 31 years EKG: Sinus rhythm POSSIBLE RIGHT VENTRICULAR CONDUCTION DELAY BORDERLINE ECG NO PREVIOUS TRACING DOCTOR: Dario Troy Interpretating Date/Time 01/30/2017 13:36:43
== END 2017-01-29 19:00 | disposition home or self-care (01) ==
LOC: NEPD 16:16
DX: O16.5 Unspecified maternal hypertension, complicating the puerperium (principal); M54.2 Cervicalgia; Z79.899 Other long term (current) drug therapy
CPT/HCPCS: 71010; 80053; 81001; 82550; 83735; 84484; 85025; 85379; 85610; 85730; 93005; 96374; 96375; 99285; J0360; J1885; J2765